=== PATIENT | female | born 1970 ===

== ENCOUNTER 2016-09-19 13:02 | Inpatient (IN) ==
--- NOTE | 2016-09-19 13:19 | Emergency Department Note ---
Disposition Clinical Impression: Pneumothorax Qualifiers: Pneumothorax type: spontaneous, primary Qualified Code(s): J93.11 - Primary spontaneous pneumothorax Disposition: Admitted As Inpatient Condition: Good Chest Pain HPI - General Chief Complaint: ED Chest Pain Stated Complaint: chest pain/marilia Time Seen by Provider: 09/19/16 13:05 Source: patient Limitations: no limitations Vital Signs Reviewed: Yes Nursing Notes Reviewed: Yes - History of Present Illness HPI Narrative: Radha Is a 45 old female that comes here presenting with chest pain and shortness of breath. She states the shortness of breath and chest pain started on Saturday gradually. She says that the pain is a 5 out of 10 radiating to the right arm. She has not taken anything for the pain at this time. Planning of tingling starting in her right hand going up into her right shoulder. She notes the pain is a aching pain in her chest. Rates no previous blood clots, long car rides, DVTs, PEs. She has no cardiac history. She has no family history of cardiac issues or pulmonary issues. The reason she came in today rather than before was at the pain went away for a day and then would come back. Today was just too bearable caused her to come in today. Severity scale (1-10): 8 - Related Data Home Medications Medication Instructions Recorded Confirmed HYDROcodone/Acet 5/325 mg [[place] 1 - 2 tab PO Q8H PRN 09/19/16 09/19/16 5-325 mg] Ibuprofen [Motrin] 400 mg PO Q6HR PRN 09/19/16 09/19/16 Allergies Allergy/AdvReac Type Severity Reaction Status Date / Time Penicillins Allergy Hives Verified 08/28/16 23:55 Constitutional: Denies: fever, chills, weakness, weight change Eyes: Denies: eye pain, eye discharge, vision change ENT ED: Denies: ear pain, throat pain, dental pain, hearing loss, epistaxis, congestion, dysphagia Cardiovascular: Reports: chest pain, dyspnea on exertion. Denies: palpitations , edema, syncope Respiratory: Reports: cough, dyspnea (Recently quit smoking since Saturday due to this chest pain.). Denies: wheezes, hemoptysis, stridor Gastrointestinal: Denies: abdominal pain, nausea, vomiting, diarrhea, constipation, hematemesis, melena, hematochezia Genitourinary: Denies: dysuria, frequency, hematuria, discharge Musculoskeletal: Denies: back pain, neck pain, arthralgia, myalgia Integumentary: Denies: rash, abrasion, lesions Neurological: Denies: headache, weakness, numbness, paresthesias, confusion, abnormal gait, vertigo Endocrine: Denies: fatigue Hematological/Lymphatic: Denies: easy bleeding, easy bruising Chest Pain PMH - Past Medical History Medical history: Reports: no medical history Psychiatric history: Reports: no psych history - Social History Smoking Status: Current every day smoker Alcohol use: Reports: occasionally, recent Drug use: Reports: none Physical Exam - General Limitations: no limitations General appearance: alert, in distress - Head Head exam: atraumatic, normocephalic, normal inspection - Eye Eye exam: Present: normal appearance, PERRL, EOMI - ENT ENT exam: normal exam, normal oropharynx, mucous membranes moist - Chest Chest inspection: Present: normal inspection, symmetric chest wall rise - Respiratory Respiratory exam: Present: normal lung sounds bilaterally, wheezes (Bilaterally) - Cardiovascular Cardiovascular exam: Present: regular rate, normal rhythm, normal heart sounds - Abdominal Exam Abdominal exam: Present: soft, Non-Tender. Absent: tenderness, distention, guarding, rebound, rigidity - Skin Skin exam: Present: warm, dry, intact, normal color Course Course Narrative: 45-year-old female present to the ed complaining of chest pain and dyspnea. due to her chest pain being worse with exertion and her shortness of breath we will do both a cardiac workup and dyspnea workup. Due to her being slightly hypertensive we will give her nitroglycerin and we will see if nitroglycerin takes care of it. We will order all chest pain labs do a chest x-ray and an EKG. She has a low risk of PEs based on well's score and she has not PERC negative. The d-dimer at this time. Okay with this plan. - Reevaluation(s) Reevaluation #1: Patient reevaluated after procedure states that she is still doing well postop until time breathing at this time. I notified her that she is to be admitted she is okay with this plan. Her pain is under control at this time. She is currently coughing which is expected after this procedure. Vital Signs Temperature 98.1 F 09/19/16 13:13 Pulse Rate 108 07/19/17 13:13 Respiratory Rate 20 09/19/16 13:13 Blood Pressure 151/126 09/19/16 13:13 O2 Sat by Pulse Oximetry 90 09/19/16 13:13 Temperature 98.2 F 09/19/16 19:41 Pulse Rate 103 09/19/16 19:41 Respiratory Rate 28 09/19/16 19:41 Blood Pressure 130/79 09/19/16 19:41 O2 Sat by Pulse Oximetry 98 09/19/16 19:41 Oxygen Delivery Oxygen Delivery Nasal Cannula Procedures - Chest Tube Chest Tube 1 Chest Tube Location: anterior axillary line (Right side) Size of Tube (cm): 8 ([place]) Chest Tube Prep: betadine prep, sterile drapes applied Local Anesthetic: lidocaine 1% Amount of Anesthesia Used (mL): 10 Incision Made With: #11 blade Post Procedure: sutured to skin Tube Drainage: Condensation Amount of Initial Drainage (cc's): 0 Post Procedure CXR?: Yes Patient Tolerated Procedure: Yes Complications: other Progress: Patient is doing well after chest tube was placed she stated that the pain is less now. She is having a harder time breathing. And this is expected as the lung is now expanding. Due to decreased blood flow to that right side because of the length of time from the pneumothorax her saturations are still low at approximately 89% which is expected based on decreased perfusion to the right lung. Chest Pain - MDM Narrative Medical decision making narrative: 45-year-old female presents the ED complaining of chest pain and dyspnea. Upon arrival she was seen and evaluated by myself. We decided to do a chest pain and dyspnea workup. Due to her well's score being low risk for PE and she was not pertinent negative without ordered d-dimer. When chest x-ray arrived they notified me of a pneumothorax being shown on chest x-ray to the right side. It was officially read as right sided pneumothorax with nearly complete right lung collapse. At this point we decided that she needed a chest tube. Decided to do a pneumodart 8 [place]. Patient signed informed consent for the procedure to be done. Patient agreed with this plan to have the chest tube placed. We premedicated her with Ativan and fentanyl for pain control. Patient was draped and cleaned. Sterile clothing was put on. She was anesthetized at the anterior axillary line at the fifth intercostal space. We anesthetized the periostium of the rib and then the parietal pleura. Patient tolerated this well. The chest tube was then placed with no complications. And connect to the Pneumovac and connected to suction. The tube was immediately filled with condensation affirming appropriate placement in the pleural space. There was no fluid drainage from this. Patient immediately said that she could breathe better. But she is still short of breath. Her sats dropped to 89% which was expected due to the length of time that the pneumothorax was in as her pain started last Saturday. The chest tube was then attached by suture to the scan with medications. And was taped to her body. Patient is doing well after the procedure. Cardiothoracic surgery Dr. Kaufman was contacted and he agreed to consult with the hospitalist upon admission. Hospitalist was called and agreed to accept the patient. Patient is now being admitted at this time. Chest X-Ray 09/19/16 14:55 IMPRESSION: 1. Status post placement of a right chest tube with near total resolution of the right pneumothorax. D/ / Richy Childers MD / Richy Childers MD Interpreting Provider: Richy Childers MD Chest X-Ray 09/19/16 14:55 IMPRESSION: 1. Status post placement of a right chest tube with near total resolution of the right pneumothorax. D/ / Richy Childers MD / Richy Childers MD Interpreting Provider: Richy Childers MD - Medical Records Medical records reviewed: Yes I reviewed the patient's medical records. - Lab Data Lab results reviewed: Yes I reviewed the patient's lab results. Result diagrams: 09/19/16 13:35 09/19/16 13:35 Lab Results 09/19/16 09/19/16 09/19/16 Range/Units 13:35 13:35 13:35 WBC 10.0 (4.3-11.1) K/mcL RBC 4.43 (3.82-4.97) M/mcL Hgb 13.2 (11.5-15.4) g/dL Hct 40.2 (35.3-44.9) % MCV 90.7 (83.0-100.0) fL MCH 29.8 (28.0-33.3) pg MCHC 32.8 (31.6-35.5) g/dL RDW 14.7 H (11.5-14.5) % Plt Count 258 (140-400) K/mcL MPV 10.4 (9.4-12.4) fL Immature Gran % 0.3 (0-4) % Seg Neutrophils % 72.2 % Lymphocytes % 19.3 % Monocytes % 7.3 % Eosinophils % 0.5 % Basophils % 0.4 % Neutrophils # 7.3 (1.6-8.9) K/mcL Lymphocytes # 1.9 (0.6-4.6) K/mcL Monocytes # 0.7 (0.0-1.3) K/mcL Eosinophils # 0.1 (0.0-0.6) K/mcL Basophils # 0.0 (0.0-0.2) K/mcL PT 12.0 (9.4-12.1) Seconds INR 1.1 APTT 27.5 (26.0-36.0) Seconds D-Dimer 984 H (0-500) ng/mLFEU Sodium 135 L (136-145) mEq/L Potassium 3.5 (3.5-4.5) mEq/L Chloride 101 (98-109) mEq/L Carbon Dioxide 24 (19-29) mEq/L BUN 6 L (7-20) mg/dL Creatinine 0.75 (0.57-1.11) mg/dL Est GFR ( Amer) > 60 (> 60) Est GFR (Non-Af Amer) > 60 (> 60) BUN/Creatinine Ratio 8 (6-26) Glucose 165 H (70-99) mg/dL Calculated Osmolality 281 (280-300) Calcium 9.2 (8.6-10.8) mg/dL Troponin I (0-0.03) ng/mL 09/19/16 Range/Units 13:35 WBC (4.3-11.1) K/mcL RBC (3.82-4.97) M/mcL Hgb (11.5-15.4) g/dL Hct (35.3-44.9) % MCV (83.0-100.0) fL MCH (28.0-33.3) pg MCHC (31.6-35.5) g/dL RDW (11.5-14.5) % Plt Count (140-400) K/mcL MPV (9.4-12.4) fL Immature Gran % (0-4) % Seg Neutrophils % % Lymphocytes % % Monocytes % % Eosinophils % % Basophils % % Neutrophils # (1.6-8.9) K/mcL Lymphocytes # (0.6-4.6) K/mcL Monocytes # (0.0-1.3) K/mcL Eosinophils # (0.0-0.6) K/mcL Basophils # (0.0-0.2) K/mcL PT (9.4-12.1) Seconds INR APTT (26.0-36.0) Seconds D-Dimer (0-500) ng/mLFEU Sodium (136-145) mEq/L Potassium (3.5-4.5) mEq/L Chloride (98-109) mEq/L Carbon Dioxide (19-29) mEq/L BUN (7-20) mg/dL Creatinine (0.57-1.11) mg/dL Est GFR ( Amer) (> 60) Est GFR (Non-Af Amer) (> 60) BUN/Creatinine Ratio (6-26) Glucose (70-99) mg/dL Calculated Osmolality (280-300) Calcium (8.6-10.8) mg/dL Troponin I 0.00 (0-0.03) ng/mL - Radiology Data Radiology results reviewed: Yes I reviewed the patient's radiology results. - EKG Data EKG attestation: Yes I reviewed and interpreted this EKG. EKG results narrative: EKG done 1320 shows sinus tachycardia. Rate 101, DE interval 135, QRS 76, QTC 414, right axis. No signs of ST changes. No acute T-wave changes. Overall the shows sinus tachycardia. There is no old EKG to compare to. EKG shows normal: sinus rhythm Rate: tachycardia Rhythm: NSR [place]/QRS: right axis deviation When compared to previous EKG there are: previous EKG unavailable Interpretation: no acute changes Heart Score - Score History: Moderately Suspicious EKG: Normal Age: 45-65 Risk Factors: 1-2 risk factors Troponin: Less than normal limit HEART Score Total: 3 Attestation Statement - Attestation Attestation: I examined this patient and my medical decision-making was reviewed with the Resident Physician. I agree with the documented findings, disposition and treatment plan as described except to the extent set forth below. 45-year-old female presents CT because of right-sided chest pain and dyspnea. Symptoms began 4 days ago and has been persistent. Pain is worsened by deep breathing. She had prior cough but cough is nonproductive. No fevers or chills. No left-sided precordial chest pain. No exertional provocation of pain but does complain of exertional dyspnea. No fevers or chills. No abdominal pain. No extremity weakness or asymmetric swelling of her legs. She is a heavy smoker but has not smoked for the past 4 days. No primary history of any lung disease. Patient appears uncomfortable but no significant physiologic distress. Mild tachypnea. Oropharynx clear mucous murmurs moist. Trachea is midline. No JVD. Chest with markedly diminished breath sounds in the right side. Cardiac exam regular no rubs gallops. Chest wall nontender. Abdomen soft nondistended nontender extremity is warm dry without asymmetric edema. No calf tenderness. Chest x-ray reveals near complete collapse of the right lung with pneumothorax. She was on supple no oxygen and administered analgesics and anxiolytics. She consented to placement of chest tube for evacuation of the pneumothorax. Right chest was prepped and draped in sterile fashion and a 8-[place] pneumothorax placed with good tolerance. The lung easily expanded and she did have sometransient coughing and dyspnea with transient hypoxia. Postprocedure x-ray revealed near-complete reexpansion of the lung. She is admitted for further evaluation. Chest tube was placed to continuous suction
[2016-09-19] MEDS ORDERED: Aspirin 81 MG TAB.CHEW PO ONE (13:20)
[2016-09-19] MEDS ORDERED: Nitroglycerin 0.4 MG TAB.SUBL SL PRN (13:20)
[2016-09-19] MEDS ORDERED: *HR* LORazepam 2 MG/ML VIAL IVP ONE (13:52)
[2016-09-19] MEDS ORDERED: *HR* FentaNYL (PF) 100 MCG/2 ML VIAL IVP ONE (13:52)
[2016-09-19] MEDS ORDERED: Lidocaine/EPI 1:100k 2% 20 ML VIAL INFILT ONE (13:52)
[2016-09-19 13:53] LABS: Basophils % 0.4 %; Eosinophils # 0.1 K/mcL (0.0-0.6); Eosinophils % 0.5 %; Hematocrit 40.2 % (35.3-44.9); Hemoglobin 13.2 g/dL (11.5-15.4); Immature Granulocytes % 0.3 % (0-4); Lymphocytes # 1.9 K/mcL (0.6-4.6); Lymphocytes % 19.3 %; Mean Corpuscular HGB Conc 32.8 g/dL (31.6-35.5); Mean Corpuscular Hemoglobin 29.8 pg (28.0-33.3); Mean Corpuscular Volume 90.7 fL (83.0-100.0); Mean Platelet Volume 10.4 fL (9.4-12.4); Monocytes # 0.7 K/mcL (0.0-1.3); Monocytes % 7.3 %; Neutrophils # 7.3 K/mcL (1.6-8.9); Platelet Count 258 K/mcL (140-400); Red Blood Count 4.43 M/mcL (3.82-4.97); Red Cell Distribution Width 14.7 % (11.5-14.5); Segmented Neutrophils % 72.2 %
[2016-09-19 13:59] LABS: INR 1.1
[2016-09-19 14:01] LABS: Activated Partial Thrombo Time 27.5 Seconds (26.0-36.0)
[2016-09-19 14:05] LABS: BUN/Creatinine Ratio 8 (6-26); Blood Urea Nitrogen 6 mg/dL (7-20); Calcium 9.2 mg/dL (8.6-10.8); Carbon Dioxide 24 mEq/L (19-29); Chloride 101 mEq/L (98-109); Glucose 165 mg/dL (70-99); Osmolality,Calculated 281 (280-300); Potassium 3.5 mEq/L (3.5-4.5); Sodium 135 mEq/L (136-145); eGFR For African Americans > 60 (> 60); eGFR For Non-African Americans > 60 (> 60)
[2016-09-19] MEDS ORDERED: 0.9 % Sodium Chloride 1,000 ML ONE (14:20)
[2016-09-19] MEDS ORDERED: 0.9 % Sodium Chloride 1,000 ML IVC ONE (15:06)
[2016-09-19] MEDS ORDERED: Ipratropium/Albuterol Neb 3 ML IH PRN (17:48)
[2016-09-19] MEDS ORDERED: Ipratropium/Albuterol Neb 3 ML IH ONE (17:48)
[2016-09-19] MEDS ORDERED: 0.9 % Sodium Chloride 1,000 ML IVC SCH (18:00)
[2016-09-19] MEDS ORDERED: Naloxone 0.4 MG/ML INJ IVP PRN (18:17)
[2016-09-19] MEDS ORDERED: *HR* Morphine 2 MG/ML SYRINGE IVP PRN (18:19)
[2016-09-19] MEDS ORDERED: Ondansetron 4 MG/2 ML VIAL IVP PRN (18:19)
[2016-09-19] MEDS ORDERED: Acetaminophen 325 MG TABLET PO PRN (18:19)
--- NOTE | 2016-09-19 20:13 | Internal Med History&Physical ---
<Michele Fuentes - Last Filed: 09/19/16 20:54> Date of Encounter: 09/19/16 Time of Encounter: 18:00 Assessment and Plan (1) Chest pain Current visit: Yes Status: Acute Patient presents with chief complaint of chest pain that worsens with breathing. Patient denies history of cardiac issues or problems previously. Patient to be placed on continuous cardiac telemetry with trended troponins x2. Nitroglycerin PRN ordered. Supplementa O2 and SpO2 monitoring ordered. EV echocardiogram ordered. May consider cardiology consult based on echocardiogram results. Will monitor patient closely for signs of increased cardiac and/or respiratory distress. Qualifiers: Chest pain type: chest pain on breathing Qualified Code(s): R07.1 - Chest pain on breathing (2) SOB (shortness of breath) Current visit: Yes Status: Acute Patient presents with acute SOB related to pneumothorax. Chest tube and vacuum placed in ED. Will continue with this therapy. Patient placed in supplemental O2 with face mask at 4L with SpO2 monitoring. DuoNebs Q4 ordered. Sputum culture ordered. Patient placed on safety/up with assist precautions. (3) Pneumothorax Current visit: Yes Status: Acute Patient presents in ED with pneumothorax of right lung. Chest tube placed with vaccum. Follow-up CXR showed resolution of pneumothorax. Will continue to monitor patient's output via vacuum. Will monitor patient's respiratory status. Patient placed on supplemental O2 with continuous SpO2 monitoring. Qualifiers: Pneumothorax type: spontaneous, primary Qualified Code(s): J93.11 - Primary spontaneous pneumothorax (4) Elevated d-dimer Current visit: Yes Status: Acute Patient presents with elevated D-dimer of 984 on admission to ED most likely related to pneumothorax. Will order follow-up labs to monitor. (5) DVT prophylaxis Current visit: Yes Status: Acute Patient placed on DVT prophylaxis to her current admission protocol and current status. Bilateral SCDs ordered for patient's LEs. Internal Medicine - H&P: HPI Chief complaint: SOB, Chest pain Admitted From: Emergency Dept Plans for Post Hospital Care: Home History of present illness: Ms. Zhong is a 45 year old female who presents from the ED with chief complaint of shortness of breath and chest pain. Patient states that her SOB and chest pain began on Saturday. She states the pain radiated to her right hand and right shoulder. She describes the pain as an ache. Patient states she came into the ED today because the pain became too great to handle. Patient denies any history of cardiac issues or pulmonary issues previously. Patient denies any medical or psychiatric history. Patient's d-dimer on admission to ED was 984. However, patient is low risk for PE or DVTs. During admission to the ED, patient's CXR showed pneumothorax so chest tube was placed on right side. Follow -up CXR showed resolution of pneumothorax. Patient presented with cough post- chest tube placement with heavy sputum production. Patient denies recent illness , fever, chills, abdominal pain, nausea, vomiting, diarrhea, unusual bleeding, weakness, headache, numbness, or tingling. Patient is at moderate risk for cardiac event and/or respiratory distress due to current chest pain and pneumothorax and will be placed as inpatient status with continuous cardiac telemetry, SPO2 monitoring, supplemental O2 face mask at 4 L, DuoNeb every 4, trending troponins 2, and bedrest with assist only. Patient to be monitored closely for increasing cardiac and/or respiratory distress. Time spent with patient > 40 minutes. Past Med Surg Social Fam HX - Past Medical History Source: patient Medical history: no medical history Psychiatric history: no psych history - Past Surgical History Surgical History: - Social History Smoking Status: Current every day smoker Packs per day: 1-03/05 PPD - reports she quit Saturday Smokeless Tobacco Status: No Alcohol use: occasionally Drug use: none Current living situation: Home Activity Level: Independent ambulation Recent Out of Country Travel Within the Last 8 Weeks: No Exposure or Possible Exposure to Illness During Travel: No - Family History Father Race: Family Member Ethnicity: Non- Living Status: Age at : 58 Cause of : Brain aneurysm Mother Race: Family Member Ethnicity: Non- Living Status: Still Living Hx Family Endocrine Disorder: Yes (DM) Hx Family Neuromuscular Disorders: Yes (Lupus) Brother Race: Family Member Ethnicity: Non- Living Status: Still Living Hx Family Medical Disorders: No Sister Race: Family Member Ethnicity: Non- Living Status: Still Living Hx Family Endocrine Disorder: Yes (DM) Internal Medicine - H&P: Meds HYDROcodone/Acet 5/325 mg [[place] 5-325 mg] 1 - 2 tab PO Q8H PRN 09/19/16 [ History] Ibuprofen [Motrin] 400 mg PO Q6HR PRN 09/19/16 [History] Allergies Penicillins Allergy (Verified 08/28/16 23:55) Hives All Systems PM: A 10-system review of systems was performed and is negative for pertinent findings except as documented above in the HPI. - Constitutional Constitutional: as per HPI, no chills, no fever(s), no night sweats - EENT Eyes: no change in vision, no discharge, no pain, no photophobia Ears: no ear discharge, no ear pain, no tinnitus Nose, mouth and throat: no dysphagia, no nasal discharge, no neck pain, no sore throat - Breasts Breasts: as per HPI - Cardiovascular Cardiovascular ROS IM: as per HPI, chest pain, dyspnea, dyspnea on exertion - Respiratory Respiratory: as per HPI, cough, dyspnea, dyspnea on exertion, wheezing - Gastrointestinal Gastrointestinal: no abdominal pain, no diarrhea, no hematemesis, no hematochezia, no melena, no nausea, no vomiting - Genitourinary Genitourinary: no change in urinary stream, no dysuria, no flank pain, no hematuria Menstruation: as per HPI - Musculoskeletal Musculoskeletal ROS IM: no numbness, no tingling - Integumentary Integumentary IM: no rash, no unusual bruising - Neurological Neurological ROS: no confusion, no convulsions, no focal weakness, no numbness, no tingling, no tremor(s) - Psychiatric Psychiatric: as per HPI - Endocrine Endocrine IM: as per HPI - Hematologic/Lymphatic Hematologic/Lymphatic: no easy bruising - Allergic/Immunologic Allergic/Immunologic: as per HPI - Constitutional Vitals: Temp Pulse Resp BP Pulse Ox 98.2 F 103 28 130/79 98 09/19/16 19:41 09/19/16 19:41 09/19/16 19:41 09/19/16 19:41 09/19/16 19:41 General appearance: Present: cooperative, A&O X 3, pleasant, severe distress, answers questions appropriately - Head Head exam: Present: atraumatic, normocephalic - Eye Eye exam: Present: PERRL, conjuntiva pink, sclera anicteric Pupils: Present: PERRL - ENT ENT exam: Present: normal exam, normal external ear exam - Neck Neck exam general surgery: Present: supple, trachea midline. Absent: lymphadenopathy - Respiratory Respiratory exam: Present: wheezes (Bilaterally in all lobes) - Cardiovascular Cardiovascular exam: Present: RRR, +S1, +S2. Absent: diastolic murmur, gallop, rubs, systolic murmur - GI/Abdominal GI/Abdominal exam: Present: normal bowel sounds, soft, no peritoneal signs. Absent: distended, tenderness - Rectal Rectal exam: Present: deferred - Additional comments: exam deferred. - Extremities Exam Extremities exam: Present: warm, radial pulses palpable and symetrical. Absent : calf tenderness, cyanotic, pedal edema - Back Exam Back exam: Present: normal inspection - Neurological Exam Neurological exam: Present: CN II-XII intact, oriented X3, no focal deficits. Absent: pronater drift, facial droop, speech deficit - Psychiatric Psychiatric exam: Present: normal affect, normal mood - Skin Skin exam: Present: dry, intact Internal Med - H&P Results - Labs CBC & Chem 7: 09/19/16 13:35 09/19/16 13:35 - EKG Data EKG shows normal: sinus rhythm Rate: tachycardia - EKG Data Prior EKG available for review: no EKG comments: 09/19/16 20:38 EKG dated 09/19/16 shows sinus tachycardia with borderline right axis deviation , minimal voltage criteria for LVH. Consider normal variant. Nonspecific ST and T-wave abnormality. - Impressions ITS Impressions Chest CTA 09/19/16 17:50 IMPRESSION: Near complete re-expansion of the right lung status post chest tube placement earlier today. Small nondependent right pneumothorax remains. There has been interval development of diffuse right lung airspace disease most compatible with re-expansion pulmonary edema. Minimal similar left lung airspace disease is also present ; contralateral lung can be involved as well. Pulmonary hemorrhage, although considered less likely, is also included in the differential ; aspiration is considered unlikely given its distribution. No CT evidence pulmonary embolism. D/ / Goldie Guzmán Cha, MD / Goldie Guzmán Cha, MD Interpreting Provider: Goldie Guzmán Cha, MD - Diagnostic Studies Chest x-ray Additional comments: Impressions Chest X-Ray 09/19/16 13:08 IMPRESSION: Large right-sided pneumothorax with minimal tension with shift to the left . Emergent findings called to Pranay Chiang RN in the ER on 09/19/2016 at 1:50 p.m.. D/ / Zhou Mccall MD / Zhou Mccall MD Interpreting Provider: Zhou Mccall MD Chest X-Ray 09/19/16 14:55 IMPRESSION: 1. Status post placement of a right chest tube with near total resolution of the right pneumothorax. D/ / Richy Childers MD / Richy Childers MD Interpreting Provider: Richy Childers MD CT scan - chest Additional comments: Impressions Chest CTA 09/19/16 17:50 IMPRESSION: Near complete re-expansion of the right lung status post chest tube placement earlier today. Small nondependent right pneumothorax remains. There has been interval development of diffuse right lung airspace disease most compatible with re-expansion pulmonary edema. Minimal similar left lung airspace disease is also present ; contralateral lung can be involved as well. Pulmonary hemorrhage, although considered less likely, is also included in the differential ; aspiration is considered unlikely given its distribution. No CT evidence pulmonary embolism. D/ / Goldie Guzmán Cha, MD / Goldie Guzmán Cha, MD Interpreting Provider: Goldie Guzmán Cha, MD <Sean Vega - Last Filed: 09/19/16 21:02> Date of Encounter: 09/19/16 Internal Medicine - H&P: HPI History of present illness: Ms. Zhong is a 45 year old female All Systems PM: A 10-system review of systems was performed and is negative for pertinent findings except as documented above in the HPI. - Constitutional Vitals: Temp Pulse Resp BP Pulse Ox 98.2 F 102 28 130/79 98 09/19/16 19:41 07/19/17 20:03 09/19/16 20:03 09/19/16 19:41 09/19/16 20:03 Internal Med - H&P Results - Labs CBC & Chem 7: 09/19/16 13:35 09/19/16 13:35 - Impressions ITS Impressions Chest CTA 09/19/16 17:50 IMPRESSION: Near complete re-expansion of the right lung status post chest tube placement earlier today. Small nondependent right pneumothorax remains. There has been interval development of diffuse right lung airspace disease most compatible with re-expansion pulmonary edema. Minimal similar left lung airspace disease is also present ; contralateral lung can be involved as well. Pulmonary hemorrhage, although considered less likely, is also included in the differential ; aspiration is considered unlikely given its distribution. No CT evidence pulmonary embolism. D/ / Goldie Guzmán Cha, MD / Goldie Guzmán Cha, MD Interpreting Provider: Goldie Guzmán Cha, MD - Attending Attestation I have seen and examined pt. I discussed with [facility] regarding the management plan. I agree with the documentation. Pt has developped postexpension pulmonary edema. Will give one dose of lasix iv. Cont supportive and symptomatic treatment.
[2016-09-19] MEDS: Pantoprazole 40 MG VIAL IVP SCH (20:43)
[2016-09-19 22:55] LABS: Bilirubin,Urine Negative (Negative); Blood,Urine Trace (Negative); Clarity,Urine Clear (Clear); Color,Urine Yellow (Yellow); Glucose,Urine (UA) Normal (Normal); Ketones,Urine Negative (Negative); Leukocyte Esterase,Urine Trace (Negative); Nitrite,Urine Negative (Negative); Protein,Urine Negative (Neg-Trace); Specific Gravity,Urine > 1.030 (1.010-1.025); Urobilinogen,Urine Normal (Normal)
[2016-09-19 22:58] LABS: Bacteria,Urine Moderate per hpf (None-Few); Hyaline Casts,Urine None Seen per lpf (None-Few); Squamous Epithelial Cell,Urine Many per lpf (None-Few)
[2016-09-20 04:33] LABS: Basophils # 0.1 K/mcL (0.0-0.2); Basophils % 0.5 %; Eosinophils # 0.1 K/mcL (0.0-0.6); Eosinophils % 0.7 %; Hematocrit 39.5 % (35.3-44.9); Immature Granulocytes % 0.4 % (0-4); Lymphocytes # 1.5 K/mcL (0.6-4.6); Lymphocytes % 11.4 %; Mean Corpuscular HGB Conc 32.9 g/dL (31.6-35.5); Mean Corpuscular Hemoglobin 30.1 pg (28.0-33.3); Mean Corpuscular Volume 91.4 fL (83.0-100.0); Mean Platelet Volume 10.8 fL (9.4-12.4); Monocytes # 0.7 K/mcL (0.0-1.3); Monocytes % 5.3 %; Neutrophils # 10.7 K/mcL (1.6-8.9); Platelet Count 219 K/mcL (140-400); Red Blood Count 4.32 M/mcL (3.82-4.97); Red Cell Distribution Width 14.7 % (11.5-14.5); Segmented Neutrophils % 81.7 %
[2016-09-20 04:44] LABS: BUN/Creatinine Ratio 8 (6-26); Calcium 7.9 mg/dL (8.6-10.8); Carbon Dioxide 30 mEq/L (19-29); Chloride 103 mEq/L (98-109); Chol/HDL Ratio 2.2 (0-4.9); Cholesterol 89 mg/dL (< 200); Glucose 91 mg/dL (70-99); HDL Cholesterol 41 mg/dL (40-59); LDL Cholesterol,Calculated 37 mg/dL (0-99); Magnesium 1.5 mg/dL (1.6-2.6); Osmolality,Calculated 279 (280-300); Potassium 3.5 mEq/L (3.5-4.5); Sodium 136 mEq/L (136-145); Triglycerides 56 mg/dL (< 150); eGFR For African Americans > 60 (> 60); eGFR For Non-African Americans > 60 (> 60)
[2016-09-20 04:45] LABS: Blood Urea Nitrogen 5 mg/dL (7-20)
[2016-09-20] MEDS: Pantoprazole 40 MG VIAL IVP SCH (08:12)
[2016-09-20] MEDS ORDERED: Magnesium Sulfate 1 GM in D5% in Water 100 ML IVPB ONE (08:12)
--- NOTE | 2016-09-20 09:06 | Electrocardiograph Report ---
[facility] Test Date: 2016-09-19 Pat Name: Radha Zhong Department: 104 Room: 2N09 Gender: F Domestic Technician: : 1970 Requested By: Kirill Lind Order Number: [id number] Reading MD: Frank Larkin MD Measurements Intervals Ramona Rate: 101 P: 100 MD: 135 QRS: 92 QRSD: 76 T: 65 QT: 356 QTc: 414 Interpretive Statements SINUS TACHYCARDIA BORDERLINE RIGHT AXIS DEVIATION MINIMAL VOLTAGE CRITERIA FOR LVH, CONSIDER NORMAL VARIANT NONSPECIFIC ST & T-WAVE ABNORMALITY ABNORMAL RHYTHM ECG Electronically Signed On 09-20-2016 9:04:44 EDT by Frank Larkin MD
--- NOTE | 2016-09-20 10:55 | Cardiothoracic Consult Note ---
Date of Encounter: 09/20/16 Time of Encounter: 10:52 Assessment and Plan (1) Pneumothorax Current Visit: Yes Status: Acute The patient is recovering from her right spontaneous pneumothorax with a chest tube in place. The chest tube has an air leak on suction. The chest tube should remain on suction until the air leak resolves. The assessment and plan as outlined above was discussed with the patient and/or family members who expressed understanding and agreement. All questions were answered. Qualifiers: Pneumothorax type: spontaneous, primary Qualified Code(s): J93.11 - Primary spontaneous pneumothorax - History of Present Illness Consult date: 09/19/16 Requesting physician: Carissa Martinez Consult reason: Chest tube management. Chief complaint: Right spontaneous pneumothorax. History of present illness: Ms. Zhong is a 45 year old lady with a long history of tobacco abuse who experienced sudden onset of right sided chest pain and shortness of breath on Saturday, September 15, 2016. The patient states that she had a similar episode approximately 1 month ago; however, the symptoms lasted for only 1-2 days. She did not seek medical attention at that time. The right-sided chest pain that she experienced on Saturday lasted for 3-4 days. During this time the pain intensified and she sought medical attention when she could no longer tolerate the discomfort. A chest x-ray performed at [facility] emergency department revealed a right pneumothorax. A chest tube was placed in the emergency department with near complete resolution of the pneumothorax. The patient was admitted for further care and I have been asked to follow the patient for chest tube management. Past Med Surg Social Fam HX - Past Medical History Medical history: COPD Psychiatric history: no psych history - Past Surgical History Surgical History: - Social History Smoking Status: Current every day smoker Packs per day: 1-03/05 PPD X 37 years (reports she quit Saturday) Smokeless Tobacco Status: No Alcohol use: occasionally Drug use: none Occupational status: unemployed Current living situation: Home - Independent Activity Level: Independent ambulation Recent Out of Country Travel Within the Last 8 Weeks: No Exposure or Possible Exposure to Illness During Travel: No - Family History Father Race: Family Member Ethnicity: Non- Living Status: Age at : 58 Cause of : Brain aneurysm Hx Family Medical Disorders: Yes (brain aneurysm) Mother Race: Family Member Ethnicity: Non- Living Status: Still Living Hx Family Endocrine Disorder: Yes (DM) Hx Family Neuromuscular Disorders: Yes (Lupus) Brother Race: Family Member Ethnicity: Non- Living Status: Still Living Hx Family Medical Disorders: No Sister Race: Family Member Ethnicity: Non- Living Status: Still Living Hx Family Endocrine Disorder: Yes (DM) Medications and Allergies HYDROcodone/Acet 5/325 mg [[place] 5-325 mg] 1 - 2 tab PO Q8H PRN 09/19/16 [ History] Ibuprofen [Motrin] 400 mg PO Q6HR PRN 09/19/16 [History] Allergies Penicillins Allergy (Verified 08/28/16 23:55) Hives All Systems Review: A 10-system review of systems was performed and is negative for pertinent findings except as documented above in the HPI. Physical Examination Vital Signs, Last 4 Hours Temp Pulse Resp BP Pulse Ox 09/20/16 10:38 97.5 F L 83 20 128/74 100 09/20/16 08:05 98.1 F 99 20 126/71 98 09/20/16 07:25 108 General: Conversant, No Apparent Distress Neck: No JVD, Normal carotid pulses Cardiac: Reg Rate and Rhythm, Normal S1 and S2, No Murmur Lungs: Normal Breath Sounds, Other (Right chest tube with air leak on suction.) Neuro: Alert and responsive, No focal deficits noted Vascular: Normal capillary refill Abdomen: Soft, Non-tender Musculoskeletal: No Chest Wall Tenderness Extremities: No Clubbing, No Cyanosis, No Edema Results 09/20/16 03:47 09/20/16 03:47 Lab Results, Last 24 hours 09/19/16 09/20/16 09/20/16 21:52 03:47 03:47 WBC 13.1 H Hgb 13.0 Hct 39.5 Plt Count 219 Sodium Potassium Chloride Carbon Dioxide BUN Creatinine Glucose Calcium Magnesium Troponin I 0.00 0.02 09/20/16 03:47 WBC Hgb Hct Plt Count Sodium 136 Potassium 3.5 Chloride 103 Carbon Dioxide 30 H BUN 5 L Creatinine 0.63 Glucose 91 Calcium 7.9 L Magnesium 1.5 L Troponin I Consult Discharge Plan - Plan Referrals: Vinh Andino DO [Resident] - 10/09/16 2:00 pm
[2016-09-20] MEDS ORDERED: Nicotine 21 MG PATCH.TD24 TD PRN (14:39)
--- NOTE | 2016-09-20 19:09 | Internal Med Progress Note ---
Date of Encounter: 09/20/16 Time of Encounter: 10:45 - Assessment and plan (1) Pneumothorax Current Visit: Yes Status: Acute Assessment and plan: Right-sided spontaneous pneumothorax. Patient presented with progressive shortness of breath since last Saturday. In ED, stat chest x-ray showed right- sided pneumothorax. She underwent placement of right chest tube. Subsequent CTA of chest revealed near complete reexpansion of the right lung status post chest tube placement. Small nondependent aright pneumothorax. There has been interval development of diffuse right lung airspace disease most compatible with reexpansion pulmonary edema. No PE. Echocardiac showed LVEF 65%. Appreciate cardiothoracic service input. Continue chest tube until her leak resolves. Qualifiers: Pneumothorax type: spontaneous, primary Qualified Code(s): J93.11 - Primary spontaneous pneumothorax (2) COPD (chronic obstructive pulmonary disease) Current Visit: Yes Status: Chronic Assessment and plan: nebs. counseled to quit smoking. states she quit last Saturday. Qualifiers: COPD type: emphysema Emphysema type: centrilobular Qualified Code(s): J43.2 - Centrilobular emphysema (3) Emphysema of lung Current Visit: Yes Status: Chronic Assessment and plan: nebs Qualifiers: Emphysema type: centrilobular Qualified Code(s): J43.2 - Centrilobular emphysema (4) Hypomagnesemia Current Visit: Yes Status: Acute Assessment and plan: replete (5) Tobacco abuse Current Visit: Yes Status: Chronic - Subjective Interval history: pt reports mild pain at site of chest tube. - Constitutional Vitals: Temp Pulse Resp BP Pulse Ox 98.7 F 81 20 130/74 97 09/20/16 15:20 09/20/16 15:20 09/20/16 15:20 09/20/16 15:20 09/20/16 15:20 General appearance: Present: cooperative, A&O X 3, pleasant, severe distress, answers questions appropriately - Neck Neck exam general surgery: Present: supple, trachea midline. Absent: lymphadenopathy - Respiratory Respiratory exam: Present: decreased breath sounds, rhonchi Additional comments: right sided chest tube - Cardiovascular Cardiovascular exam: Present: RRR - GI/Abdominal GI/Abdominal exam: Present: normal bowel sounds, soft. Absent: distended, tenderness - Extremities Exam Extremities exam: Absent: pedal edema - Back Exam Back exam: Absent: CVA tenderness (L), CVA tenderness (R) - Neurological Exam Neurological exam: Present: alert, oriented X3, no focal deficits, strengths equal and symetr throughout. Absent: facial droop, speech deficit - Skin Skin exam: Absent: rash Internal Medicine: Result - Labs CBC & Chem 7: 09/20/16 03:47 09/20/16 03:47 Labs: Short CBC 09/20/16 Range/Units 03:47 WBC 13.1 H (4.3-11.1) K/mcL Hgb 13.0 (11.5-15.4) g/dL Hct 39.5 (35.3-44.9) % Plt Count 219 (140-400) K/mcL Neutrophils # 10.7 H (1.6-8.9) K/mcL BMP 09/20/16 03:47 Sodium 136 Potassium 3.5 Chloride 103 Carbon Dioxide 30 H BUN 5 L Creatinine 0.63 Glucose 91 Calcium 7.9 L Cardiac Enzymes 09/19/16 09/20/16 Range/Units 21:52 03:47 Troponin I 0.00 0.02 (0-0.03) ng/mL Urine 09/19/16 Range/Units 21:55 Urine Color Yellow (Yellow) Urine Clarity Clear (Clear) Urine pH 6.0 (5.0-8.0) pH Units Ur Specific [place] > 1.030 H (1.010-1.025) Urine Protein Negative (Neg-Trace) mg/dL Urine Glucose (UA) Normal (Normal) mg/dL - ABG Interpretation ABG results: PT/INR, D-dimer PT 12.0 Seconds (9.4-12.1) 09/19/16 13:35 D-Dimer 984 ng/mLFEU (0-500) H 09/19/16 13:35 - Impressions Impressions Chest CTA 09/19/16 17:50 IMPRESSION: Near complete re-expansion of the right lung status post chest tube placement earlier today. Small nondependent right pneumothorax remains. There has been interval development of diffuse right lung airspace disease most compatible with re-expansion pulmonary edema. Minimal similar left lung airspace disease is also present ; contralateral lung can be involved as well. Pulmonary hemorrhage, although considered less likely, is also included in the differential ; aspiration is considered unlikely given its distribution. No CT evidence pulmonary embolism. D/ / Goldie Guzmán Cha, MD / Goldie Guzmán Cha, MD Interpreting Provider: Goldie Guzmán Cha, MD Consult Discharge Plan - Plan Referrals: Vinh Andino DO [Resident] - 10/09/16 2:00 pm (PLEASE FILL OUT THE NEW PATIENT PACKET THAT IS BEING MAILED TO YOU, AND TAKE TO YOUR APPPOINTMENT. SHOW UP 15 MINUTES EARLY FOR YOUR APPOINTMENT. TAKE PICTURE ID, INS. CARDS AND ALL MEDICATIONS IN THE BOTTLES. IF YOU HAVE TO CANCEL PLEASE CALL [phone] WITHIN 24 HOURS OF YOUR APPOINTMENT. THANKS)
[2016-09-20] MEDS: *HR* HYDROcodone/Acet 5/325 mg TABLET PO PRN (19:18)
[2016-09-21 04:30] LABS: Basophils # 0.1 K/mcL (0.0-0.2); Basophils % 0.6 %; Eosinophils # 0.2 K/mcL (0.0-0.6); Eosinophils % 2.8 %; Hematocrit 36.7 % (35.3-44.9); Hemoglobin 11.8 g/dL (11.5-15.4); Immature Granulocytes % 0.3 % (0-4); Lymphocytes # 1.4 K/mcL (0.6-4.6); Lymphocytes % 16.2 %; Mean Corpuscular HGB Conc 32.2 g/dL (31.6-35.5); Mean Corpuscular Hemoglobin 29.8 pg (28.0-33.3); Mean Corpuscular Volume 92.7 fL (83.0-100.0); Mean Platelet Volume 10.7 fL (9.4-12.4); Monocytes # 0.6 K/mcL (0.0-1.3); Monocytes % 6.4 %; Neutrophils # 6.4 K/mcL (1.6-8.9); Platelet Count 220 K/mcL (140-400); Red Blood Count 3.96 M/mcL (3.82-4.97); Red Cell Distribution Width 14.8 % (11.5-14.5); Segmented Neutrophils % 73.7 %
[2016-09-21 04:44] LABS: BUN/Creatinine Ratio 7 (6-26); Calcium 8.3 mg/dL (8.6-10.8); Carbon Dioxide 29 mEq/L (19-29); Chloride 104 mEq/L (98-109); Glucose 98 mg/dL (70-99); Magnesium 1.6 mg/dL (1.6-2.6); Osmolality,Calculated 283 (280-300); Potassium 3.6 mEq/L (3.5-4.5); Sodium 138 mEq/L (136-145); eGFR For African Americans > 60 (> 60); eGFR For Non-African Americans > 60 (> 60)
[2016-09-21 04:49] LABS: Blood Urea Nitrogen 4 mg/dL (7-20)
--- NOTE | 2016-09-21 07:28 | Cardiothoracic Progress Note ---
Date of Encounter: 09/21/16 Time of Encounter: 07:26 - Assessment and plan (1) Pneumothorax Current Visit: Yes Status: Acute The patient is recovering from her right spontaneous pneumothorax with a chest tube in place. The chest tube has an air leak on suction. This morning's chest x -ray shows an increased size in the right pneumothorax. The patient will have a second chest tube placed in interventional radiology today to hopefully resolve the pneumothorax. The chest tube should remain on suction. The assessment and plan as outlined above was discussed with the patient and/or family members who expressed understanding and agreement. All questions were answered. Qualifiers: Pneumothorax type: spontaneous, primary Qualified Code(s): J93.11 - Primary spontaneous pneumothorax - Subjective Interval history: The patient is resting comfortably in her hospital bed. She has no complaints. Vital Signs, Last 4 Hours Temp Pulse Resp BP Pulse Ox 09/21/16 03:36 98.0 F 72 18 133/77 99 Oxgyen Flow Rate Oxygen Flow Rate (LPM) 6 Clinical Data, last 8 Hours Output, Chest Tube Drainage 30 Amount [Right Mid-Axillary Chest #1] Output, Chest Tube Drainage 40 Amount [Right Mid-Axillary Chest #1] Output, Urine Amount 400 Weight 09/19/16 09/20/16 09/21/16 23:59 23:59 23:59 Weight 51.7 kg 51.5 kg - Physical Examination General: Conversant, No Apparent Distress Neck: No JVD, Normal carotid pulses Cardiac: Reg Rate and Rhythm, Normal S1 and S2, No Murmur Incision: No signs of infection, Dry/intact dressing Chest tubes: Minimal drainage, Air leak Lungs: Other (Wheezes or rhonchi bilaterally.) Neuro: Alert and responsive, No focal deficits noted Vascular: Normal capillary refill Musculoskeletal: No Chest Wall Tenderness Extremities: No Clubbing, No Cyanosis, No Edema - Labs 09/21/16 03:58 09/21/16 03:58 Lab Results, Last 24 hours 09/21/16 09/21/16 03:58 03:58 WBC 8.7 Hgb 11.8 Hct 36.7 Plt Count 220 Sodium 138 Potassium 3.6 Chloride 104 Carbon Dioxide 29 BUN 4 L Creatinine 0.57 Glucose 98 Calcium 8.3 L Magnesium 1.6 - Imaging Chest Xray: image reviewed (Increased right lung airspace opacities. Increased size of right pneumothorax.) Consult Discharge Plan - Plan Referrals: Vinh Andino DO [Resident] - 10/09/16 2:00 pm (PLEASE FILL OUT THE NEW PATIENT PACKET THAT IS BEING MAILED TO YOU, AND TAKE TO YOUR APPPOINTMENT. SHOW UP 15 MINUTES EARLY FOR YOUR APPOINTMENT. TAKE PICTURE ID, INS. CARDS AND ALL MEDICATIONS IN THE BOTTLES. IF YOU HAVE TO CANCEL PLEASE CALL [phone] WITHIN 24 HOURS OF YOUR APPOINTMENT. THANKS)
[2016-09-21] MEDS: Pantoprazole 40 MG VIAL IVP SCH (07:31)
[2016-09-21] MEDS: *HR* HYDROcodone/Acet 5/325 mg TABLET PO PRN ×2 (07:34→14:33)
--- NOTE | 2016-09-21 11:30 | IR Procedure Note ---
Date of procedure: 09/21/16 Consent Obtained: Written consent Timeout: Correct patient and procedure verified, Correct site verified, Time out performed, Skin prep completed Indications: pneumothorax rt Procedure Performed: rt chest tube Site/Technique: 10F, right Results/Findings: adequate placement Estimated blood loss (cc): 0 Complications: None; Tolerated procedure well Post Procedure Treatment Plan: CXR, pleuravac
[2016-09-21] MEDS: levoFLOXacin 500 MG TABLET PO SCH (14:33)
--- NOTE | 2016-09-21 18:51 | Internal Med Progress Note ---
Date of Encounter: 09/21/16 Time of Encounter: 10:30 - Assessment and plan (1) Pneumothorax Current Visit: Yes Status: Acute Assessment and plan: Right-sided spontaneous pneumothorax. Patient presented with progressive shortness of breath since last Saturday. In ED, stat chest x-ray showed right- sided pneumothorax. She underwent placement of right chest tube. Subsequent CTA of chest revealed near complete reexpansion of the right lung status post chest tube placement. Small nondependent aright pneumothorax. There has been interval development of diffuse right lung airspace disease most compatible with reexpansion pulmonary edema. No PE. Echocardiogram showed LVEF 65%. Appreciate cardiothoracic service input. Patient underwent placement pigtail catheter by IR due to air leak in first chest tube with associated worsening of pneumothorax. CXR post-chest tube placement shows improvement of pneumothorax and persistent diffuse right pulmonary infiltrate. Qualifiers: Pneumothorax type: spontaneous, primary Qualified Code(s): J93.11 - Primary spontaneous pneumothorax (2) COPD (chronic obstructive pulmonary disease) Current Visit: Yes Status: Chronic Assessment and plan: nebs. counseled to quit smoking. states she quit last Saturday. Qualifiers: COPD type: emphysema Emphysema type: centrilobular Qualified Code(s): J43.2 - Centrilobular emphysema (3) Emphysema of lung Current Visit: Yes Status: Chronic Assessment and plan: nCXR shows scattered emphysematous bullae at the lung apices Qualifiers: Emphysema type: centrilobular Qualified Code(s): J43.2 - Centrilobular emphysema (4) Hypomagnesemia Current Visit: Yes Status: Acute Assessment and plan: replete (5) Tobacco abuse Current Visit: Yes Status: Chronic - Subjective Interval history: pt reports moderate chest soreness after second chest tube placement. no shortness of breath. - Constitutional Vitals: Temp Pulse Resp BP Pulse Ox 98.4 F 94 18 122/89 91 09/21/16 16:18 09/21/16 16:18 09/21/16 16:18 09/21/16 16:18 09/21/16 16:18 General appearance: Present: cooperative, mild distress (from pain), A&O X 3, pleasant, severe distress, answers questions appropriately - Neck Neck exam general surgery: Present: supple, trachea midline. Absent: lymphadenopathy - Respiratory Additional comments: two right-sided chest tubes. diminished breath sounds bilaterally. - Cardiovascular Cardiovascular exam: Present: RRR - GI/Abdominal GI/Abdominal exam: Present: normal bowel sounds, soft. Absent: distended, tenderness - Extremities Exam Extremities exam: Absent: pedal edema - Neurological Exam Neurological exam: Present: alert, oriented X3, no focal deficits, strengths equal and symetr throughout. Absent: facial droop, speech deficit Internal Medicine: Result - Labs CBC & Chem 7: 09/21/16 03:58 09/21/16 03:58 Labs: Short CBC 09/21/16 Range/Units 03:58 WBC 8.7 (4.3-11.1) K/mcL Hgb 11.8 (11.5-15.4) g/dL Hct 36.7 (35.3-44.9) % Plt Count 220 (140-400) K/mcL Neutrophils # 6.4 (1.6-8.9) K/mcL BMP 09/21/16 03:58 Sodium 138 Potassium 3.6 Chloride 104 Carbon Dioxide 29 BUN 4 L Creatinine 0.57 Glucose 98 Calcium 8.3 L - ABG Interpretation ABG results: PT/INR, D-dimer PT 12.0 Seconds (9.4-12.1) 09/19/16 13:35 D-Dimer 984 ng/mLFEU (0-500) H 09/19/16 13:35 - Impressions Impressions Chest Tube Insertion 09/21/16 00:00 IMPRESSION: Successful placement of a right anterior chest tube to evacuate pneumothorax. D/ /21/2016 12:00:13 Leslie Rouse MD / [email or web address] Interpreting Provider: Leslie Rouse MD Chest X-Ray 09/21/16 06:00 IMPRESSION: Enlarging right apical pneumothorax despite small-bore right-sided chest tube. Large-bore right-sided chest tube may be warranted. Worsening bilateral airspace disease right worse than left. D/ /21/2016 07:52:32 Jean-Pierre Boswell MD / [email or web address] Interpreting Provider: Jean-Pierre Boswell MD Chest X-Ray 09/21/16 11:27 IMPRESSION: Evacuation of right-sided pneumothorax following 2nd chest tube placement. D/ / Zhou Mccall MD / Zhou Mccall MD Interpreting Provider: Zhou Mccall MD Consult Discharge Plan - Plan Referrals: Vinh Andino DO [Resident] - 10/09/16 2:00 pm (PLEASE FILL OUT THE NEW PATIENT PACKET THAT IS BEING MAILED TO YOU, AND TAKE TO YOUR APPPOINTMENT. SHOW UP 15 MINUTES EARLY FOR YOUR APPOINTMENT. TAKE PICTURE ID, INS. CARDS AND ALL MEDICATIONS IN THE BOTTLES. IF YOU HAVE TO CANCEL PLEASE CALL [phone] WITHIN 24 HOURS OF YOUR APPOINTMENT. THANKS)
[2016-09-22 00:56] LABS: Bilirubin,Urine Negative (Negative); Blood,Urine Negative (Negative); Clarity,Urine Clear (Clear); Color,Urine Yellow (Yellow); Glucose,Urine (UA) Normal (Normal); Ketones,Urine Negative (Negative); Leukocyte Esterase,Urine Small (Negative); Nitrite,Urine Negative (Negative); PH,Urine 7.5 pH Units (5.0-8.0); Protein,Urine Negative (Neg-Trace); Specific Gravity,Urine 1.014 (1.010-1.025); Urobilinogen,Urine Normal (Normal)
[2016-09-22 00:59] LABS: Bacteria,Urine Few per hpf (None-Few); Hyaline Casts,Urine None Seen per lpf (None-Few); Squamous Epithelial Cell,Urine Many per lpf (None-Few)
[2016-09-22 02:34] LABS: Basophils % 0.5 %; Eosinophils # 0.2 K/mcL (0.0-0.6); Hematocrit 39.6 % (35.3-44.9); Hemoglobin 12.7 g/dL (11.5-15.4); Immature Granulocytes % 0.4 % (0-4); Lymphocytes # 1.7 K/mcL (0.6-4.6); Lymphocytes % 20.5 %; Mean Corpuscular HGB Conc 32.1 g/dL (31.6-35.5); Mean Corpuscular Hemoglobin 29.2 pg (28.0-33.3); Mean Platelet Volume 10.4 fL (9.4-12.4); Monocytes # 0.6 K/mcL (0.0-1.3); Monocytes % 7.7 %; Neutrophils # 5.7 K/mcL (1.6-8.9); Platelet Count 293 K/mcL (140-400); Red Blood Count 4.35 M/mcL (3.82-4.97); Red Cell Distribution Width 14.7 % (11.5-14.5); Segmented Neutrophils % 68.9 %
[2016-09-22 02:52] LABS: BUN/Creatinine Ratio 11 (6-26); Blood Urea Nitrogen 7 mg/dL (7-20); Calcium 8.9 mg/dL (8.6-10.8); Carbon Dioxide 29 mEq/L (19-29); Chloride 104 mEq/L (98-109); Glucose 115 mg/dL (70-99); Magnesium 1.5 mg/dL (1.6-2.6); Osmolality,Calculated 285 (280-300); Potassium 3.8 mEq/L (3.5-4.5); Sodium 138 mEq/L (136-145); eGFR For African Americans > 60 (> 60); eGFR For Non-African Americans > 60 (> 60)
--- NOTE | 2016-09-22 07:31 | Cardiothoracic Progress Note ---
Date of Encounter: 09/22/16 Time of Encounter: 07:29 - Assessment and plan (1) Pneumothorax Current Visit: Yes Status: Acute The patient is recovering from her right spontaneous pneumothorax with a chest tube in place. The second chest tube helped resolve the residual right apical pneumothorax. There is no air leak today. A chest tube should remain on suction. A chest x-ray will be repeated in the morning. The assessment and plan as outlined above was discussed with the patient and/or family members who expressed understanding and agreement. All questions were answered. Qualifiers: Pneumothorax type: spontaneous, primary Qualified Code(s): J93.11 - Primary spontaneous pneumothorax - Subjective Interval history: The patient is resting comfortably in her hospital bed. She has no complaints. Vital Signs, Last 4 Hours Temp Pulse Resp BP Pulse Ox 09/22/16 05:22 98.9 F 89 16 135/80 98 Oxgyen Flow Rate Oxygen Flow Rate (LPM) 4 Clinical Data, last 8 Hours Output, Chest Tube Drainage 0 Amount [Right Mid-Axillary Chest #1] Output, Urine Amount 0 Weight 09/20/16 09/21/16 09/22/16 23:59 23:59 23:59 Weight 51.7 kg 51.5 kg 51.8 kg - Physical Examination General: Conversant, No Apparent Distress Neck: No JVD, Normal carotid pulses Cardiac: Reg Rate and Rhythm, Normal S1 and S2, No Murmur Incision: No signs of infection, Dry/intact dressing Sternum: Stable Chest tubes: Minimal drainage, Other (No air leak.) Lungs: Normal Breath Sounds, No Wheeze, Rales, Rhonchi Neuro: Alert and responsive, No focal deficits noted Vascular: Normal capillary refill Extremities: No Clubbing, No Cyanosis, No Edema, Normal Pulses - Labs 09/22/16 01:49 09/22/16 01:49 Lab Results, Last 24 hours 09/22/16 09/22/16 01:49 01:49 WBC 8.2 Hgb 12.7 Hct 39.6 Plt Count 293 Sodium 138 Potassium 3.8 Chloride 104 Carbon Dioxide 29 BUN 7 Creatinine 0.65 Glucose 115 H Calcium 8.9 Magnesium 1.5 L - Imaging Chest Xray: image reviewed (Small right apical pneumothorax, significantly decreased from yesterday.) Consult Discharge Plan - Plan Referrals: Vihn Andino DO [Resident] - 10/09/16 2:00 pm (PLEASE FILL OUT THE NEW PATIENT PACKET THAT IS BEING MAILED TO YOU, AND TAKE TO YOUR APPPOINTMENT. SHOW UP 15 MINUTES EARLY FOR YOUR APPOINTMENT. TAKE PICTURE ID, INS. CARDS AND ALL MEDICATIONS IN THE BOTTLES. IF YOU HAVE TO CANCEL PLEASE CALL [phone] WITHIN 24 HOURS OF YOUR APPOINTMENT. THANKS)
[2016-09-22] MEDS: levoFLOXacin 500 MG TABLET PO SCH (07:44)
[2016-09-22] MEDS ORDERED: Magnesium Sulfate 1 GM in D5% in Water 100 ML IVPB ONE (07:51)
[2016-09-22] MEDS: Azithromycin 250 MG TABLET PO SCH (10:12)
--- NOTE | 2016-09-22 13:59 | Internal Med Progress Note ---
Date of Encounter: 09/22/16 Time of Encounter: 09:30 - Assessment and plan (1) Pneumothorax Current Visit: Yes Status: Acute Assessment and plan: Right-sided spontaneous pneumothorax. Patient presented with progressive shortness of breath since last Saturday. In ED, stat chest x-ray showed right- sided pneumothorax. She underwent placement of right chest tube. Subsequent CTA of chest revealed near complete reexpansion of the right lung status post chest tube placement. Small nondependent aright pneumothorax. There has been interval development of diffuse right lung airspace disease most compatible with reexpansion pulmonary edema. No PE. Echocardiogram showed LVEF 65%. 09/21: PT had air leak in first chest tube with associated worsening of pneumothorax. She underwent placement of pigtail catheter by IR. CXR post-chest tube placement shows resolution of pneumothorax and persistent diffuse right pulmonary infiltrate. 09/22: Appreciate cardiothoracic service management of chest tubes. Qualifiers: Pneumothorax type: spontaneous, primary Qualified Code(s): J93.11 - Primary spontaneous pneumothorax (2) COPD (chronic obstructive pulmonary disease) Current Visit: Yes Status: Chronic Assessment and plan: nebs. increased sputum production. start mucinex and oral azithromycin. Qualifiers: COPD type: emphysema Emphysema type: centrilobular Qualified Code(s): J43.2 - Centrilobular emphysema (3) Emphysema of lung Current Visit: Yes Status: Chronic Assessment and plan: nCXR shows scattered emphysematous bullae at the lung apices Qualifiers: Emphysema type: centrilobular Qualified Code(s): J43.2 - Centrilobular emphysema (4) Hypomagnesemia Current Visit: Yes Status: Acute Assessment and plan: replete (5) Tobacco abuse Current Visit: Yes Status: Chronic - Subjective Interval history: pt reports improved chest soreness and some respiratory secretions. - Constitutional Vitals: Temp Pulse Resp BP Pulse Ox 98.0 F 90 18 127/91 95 09/22/16 11:58 09/22/16 11:58 09/22/16 11:58 09/22/16 11:58 09/22/16 11:58 General appearance: Present: cooperative, A&O X 3, pleasant, no acute distress, answers questions appropriately - Neck Neck exam general surgery: Present: supple, trachea midline. Absent: lymphadenopathy - Respiratory Respiratory exam: Present: decreased breath sounds, rhonchi. Absent: wheezes - Cardiovascular Cardiovascular exam: Present: RRR - GI/Abdominal GI/Abdominal exam: Present: normal bowel sounds, soft. Absent: distended, tenderness - Extremities Exam Extremities exam: Absent: pedal edema - Neurological Exam Neurological exam: Present: alert, oriented X3. Absent: facial droop, speech deficit - Skin Skin exam: Absent: rash Internal Medicine: Result - Labs CBC & Chem 7: 09/22/16 01:49 09/22/16 01:49 Labs: Short CBC 09/22/16 Range/Units 01:49 WBC 8.2 (4.3-11.1) K/mcL Hgb 12.7 (11.5-15.4) g/dL Hct 39.6 (35.3-44.9) % Plt Count 293 (140-400) K/mcL Neutrophils # 5.7 (1.6-8.9) K/mcL BMP 09/22/16 01:49 Sodium 138 Potassium 3.8 Chloride 104 Carbon Dioxide 29 BUN 7 Creatinine 0.65 Glucose 115 H Calcium 8.9 Urine 09/22/16 Range/Units 00:47 Urine Color Yellow (Yellow) Urine Clarity Clear (Clear) Urine pH 7.5 (5.0-8.0) pH Units Ur Specific Grant 1.014 (1.010-1.025) Urine Protein Negative (Neg-Trace) mg/dL Urine Glucose (UA) Normal (Normal) mg/dL - ABG Interpretation ABG results: PT/INR, D-dimer PT 12.0 Seconds (9.4-12.1) 09/19/16 13:35 D-Dimer 984 ng/mLFEU (0-500) H 09/19/16 13:35 - Impressions Impressions Chest X-Ray 09/22/16 06:00 IMPRESSION: 1. Stable position of two right-sided chest tubes. 2. No pneumothorax identified. 3. Persistent multifocal airspace consolidation, most pronounced in the right lung. D/ : / 09/22/2016 08:51:33 Hao Jacobo MD / fabi Interpreting Provider: Hao Jacobo MD Consult Discharge Plan - Plan Referrals: Vinh Andino DO [Resident] - 10/09/16 2:00 pm (PLEASE FILL OUT THE NEW PATIENT PACKET THAT IS BEING MAILED TO YOU, AND TAKE TO YOUR APPPOINTMENT. SHOW UP 15 MINUTES EARLY FOR YOUR APPOINTMENT. TAKE PICTURE ID, INS. CARDS AND ALL MEDICATIONS IN THE BOTTLES. IF YOU HAVE TO CANCEL PLEASE CALL [phone] WITHIN 24 HOURS OF YOUR APPOINTMENT. THANKS)
[2016-09-23 01:10] LABS: Basophils # 0.1 K/mcL (0.0-0.2); Basophils % 0.9 %; Eosinophils # 0.2 K/mcL (0.0-0.6); Eosinophils % 2.6 %; Hematocrit 37.2 % (35.3-44.9); Hemoglobin 11.9 g/dL (11.5-15.4); Immature Granulocytes % 0.3 % (0-4); Lymphocytes # 1.7 K/mcL (0.6-4.6); Lymphocytes % 28.8 %; Mean Corpuscular Volume 90.5 fL (83.0-100.0); Mean Platelet Volume 10.1 fL (9.4-12.4); Monocytes # 0.6 K/mcL (0.0-1.3); Monocytes % 10.8 %; Neutrophils # 3.3 K/mcL (1.6-8.9); Platelet Count 286 K/mcL (140-400); Red Blood Count 4.11 M/mcL (3.82-4.97); Red Cell Distribution Width 14.7 % (11.5-14.5); Segmented Neutrophils % 56.6 %
[2016-09-23 01:23] LABS: BUN/Creatinine Ratio 16 (6-26); Blood Urea Nitrogen 11 mg/dL (7-20); Calcium 8.9 mg/dL (8.6-10.8); Carbon Dioxide 30 mEq/L (19-29); Chloride 104 mEq/L (98-109); Glucose 107 mg/dL (70-99); Magnesium 1.7 mg/dL (1.6-2.6); Osmolality,Calculated 288 (280-300); Potassium 3.7 mEq/L (3.5-4.5); Sodium 139 mEq/L (136-145); eGFR For African Americans > 60 (> 60); eGFR For Non-African Americans > 60 (> 60)
[2016-09-23] MEDS: Azithromycin 250 MG TABLET PO SCH (07:30)
--- NOTE | 2016-09-23 09:01 | Cardiothoracic Progress Note ---
Date of Encounter: 09/23/16 Time of Encounter: 09:00 - Assessment and plan (1) Pneumothorax Current Visit: Yes Status: Acute The patient is recovering from her right spontaneous pneumothorax with a chest tube in place. The second chest tube helped resolve the residual right apical pneumothorax. There is no air leak today. A chest tubes will be placed on waterseal. A chest x-ray will be repeated in the morning. The assessment and plan as outlined above was discussed with the patient and/or family members who expressed understanding and agreement. All questions were answered. Qualifiers: Pneumothorax type: spontaneous, primary Qualified Code(s): J93.11 - Primary spontaneous pneumothorax - Subjective Interval history: The patient is resting comfortably in her hospital bed. She has no complaints. Vital Signs, Last 4 Hours Temp Pulse Resp BP Pulse Ox 09/23/16 07:25 98.1 F 63 16 136/83 93 Oxgyen Flow Rate Oxygen Flow Rate (LPM) 2 Clinical Data, last 8 Hours Output, Chest Tube Drainage 0 Amount [Right Lateral Chest #2 ] Output, Chest Tube Drainage 0 Amount [Right Lateral Chest #2 ] Output, Chest Tube Drainage 2 Amount [Right Lateral Chest #2 ] Output, Chest Tube Drainage 0 Amount [Right Mid-Axillary Chest #1] Output, Urine Amount 0 Output, Urine Amount 400 Weight 09/21/16 09/22/16 09/23/16 23:59 23:59 23:59 Weight 51.5 kg 51.8 kg 52.6 kg - Physical Examination General: Conversant, No Apparent Distress Neck: No JVD, Normal carotid pulses Cardiac: Reg Rate and Rhythm, Normal S1 and S2, No Murmur Incision: No signs of infection, Dry/intact dressing Sternum: Stable Chest tubes: Minimal drainage, Other (No air leak.) Lungs: Normal Breath Sounds, No Wheeze, Rales, Rhonchi Neuro: Alert and responsive, No focal deficits noted Vascular: Normal capillary refill Extremities: No Clubbing, No Cyanosis, No Edema - Labs 09/23/16 00:57 09/23/16 00:57 Lab Results, Last 24 hours 09/23/16 09/23/16 00:57 00:57 WBC 5.8 Hgb 11.9 Hct 37.2 Plt Count 286 Sodium 139 Potassium 3.7 Chloride 104 Carbon Dioxide 30 H BUN 11 Creatinine 0.67 Glucose 107 H Calcium 8.9 Magnesium 1.7 - Imaging Chest Xray: image reviewed (No pneumothorax.) Consult Discharge Plan - Plan Referrals: Vinh Andino DO [Resident] - 10/09/16 2:00 pm (PLEASE FILL OUT THE NEW PATIENT PACKET THAT IS BEING MAILED TO YOU, AND TAKE TO YOUR APPPOINTMENT. SHOW UP 15 MINUTES EARLY FOR YOUR APPOINTMENT. TAKE PICTURE ID, INS. CARDS AND ALL MEDICATIONS IN THE BOTTLES. IF YOU HAVE TO CANCEL PLEASE CALL [phone] WITHIN 24 HOURS OF YOUR APPOINTMENT. THANKS)
--- NOTE | 2016-09-23 16:55 | Internal Med Progress Note ---
Date of Encounter: 09/23/16 Time of Encounter: 09:30 - Assessment and plan (1) Pneumothorax Current Visit: Yes Status: Acute Assessment and plan: Right-sided spontaneous pneumothorax. Patient presented with progressive shortness of breath since last Saturday. In ED, stat chest x-ray showed right- sided pneumothorax. She underwent placement of right chest tube. Subsequent CTA of chest revealed near complete reexpansion of the right lung status post chest tube placement. Small nondependent aright pneumothorax. There has been interval development of diffuse right lung airspace disease most compatible with reexpansion pulmonary edema. No PE. Echocardiogram showed LVEF 65%. 09/21: PT had air leak in first chest tube with associated worsening of pneumothorax. She underwent placement of pigtail catheter by IR. CXR post-chest tube placement shows resolution of pneumothorax and persistent diffuse right pulmonary infiltrate. 09/23: Appreciate cardiothoracic service management of chest tubes. CXR this morning shows resolution of pneumothorax. Chest tubes to water seal. Qualifiers: Pneumothorax type: spontaneous, primary Qualified Code(s): J93.11 - Primary spontaneous pneumothorax (2) COPD (chronic obstructive pulmonary disease) Current Visit: Yes Status: Chronic Assessment and plan: Cough and sputum production is improved. continue mucinex and oral azithromycin. Qualifiers: COPD type: emphysema Emphysema type: centrilobular Qualified Code(s): J43.2 - Centrilobular emphysema (3) Emphysema of lung Current Visit: Yes Status: Chronic Assessment and plan: nCXR shows scattered emphysematous bullae at the lung apices Qualifiers: Emphysema type: centrilobular Qualified Code(s): J43.2 - Centrilobular emphysema (4) Hypomagnesemia Current Visit: Yes Status: Acute Assessment and plan: replete (5) Tobacco abuse Current Visit: Yes Status: Chronic - Subjective Interval history: Patient states her cough is better. - Constitutional Vitals: Temp Pulse Resp BP Pulse Ox 98.1 F 71 16 124/71 95 09/23/16 15:13 09/23/16 15:24 09/23/16 15:13 09/23/16 15:13 09/23/16 15:13 General appearance: Present: cooperative, A&O X 3, pleasant, no acute distress, answers questions appropriately - Neck Neck exam general surgery: Present: supple, trachea midline. Absent: lymphadenopathy - Respiratory Respiratory exam: Present: CTAB - Cardiovascular Cardiovascular exam: Present: RRR - GI/Abdominal GI/Abdominal exam: Present: normal bowel sounds, soft. Absent: distended - Extremities Exam Extremities exam: Absent: pedal edema - Neurological Exam Neurological exam: Present: alert, oriented X3, no focal deficits, strengths equal and symetr throughout. Absent: facial droop, speech deficit - Skin Skin exam: Absent: rash Internal Medicine: Result - Labs CBC & Chem 7: 09/23/16 00:57 09/23/16 00:57 Labs: Short CBC 09/23/16 Range/Units 00:57 WBC 5.8 (4.3-11.1) K/mcL Hgb 11.9 (11.5-15.4) g/dL Hct 37.2 (35.3-44.9) % Plt Count 286 (140-400) K/mcL Neutrophils # 3.3 (1.6-8.9) K/mcL BMP 09/23/16 00:57 Sodium 139 Potassium 3.7 Chloride 104 Carbon Dioxide 30 H BUN 11 Creatinine 0.67 Glucose 107 H Calcium 8.9 - ABG Interpretation ABG results: PT/INR, D-dimer PT 12.0 Seconds (9.4-12.1) 09/19/16 13:35 D-Dimer 984 ng/mLFEU (0-500) H 09/19/16 13:35 - Impressions Impressions Chest X-Ray 09/23/16 06:00 IMPRESSION: Improving aeration in the right lung. No pneumothorax is seen. D/ / 09/23/2016 07:04:59 Jean-Pierre Boswell MD / [facility] Interpreting Provider: Jean-Pierre Boswell MD Consult Discharge Plan - Plan Referrals: Vinh Andino DO [Resident] - 10/09/16 2:00 pm (PLEASE FILL OUT THE NEW PATIENT PACKET THAT IS BEING MAILED TO YOU, AND TAKE TO YOUR APPPOINTMENT. SHOW UP 15 MINUTES EARLY FOR YOUR APPOINTMENT. TAKE PICTURE ID, INS. CARDS AND ALL MEDICATIONS IN THE BOTTLES. IF YOU HAVE TO CANCEL PLEASE CALL [phone] WITHIN 24 HOURS OF YOUR APPOINTMENT. THANKS)
--- NOTE | 2016-09-24 06:59 | Cardiothoracic Progress Note ---
Date of Encounter: 09/24/16 Time of Encounter: 06:58 - Assessment and plan (1) Pneumothorax Current Visit: Yes Status: Acute The patient is recovering from her right spontaneous pneumothorax with a chest tube in place. The chest tubes were removed. The patient may be discharged home later today. She should follow-up in my office in 4-6 weeks. The assessment and plan as outlined above was discussed with the patient and/or family members who expressed understanding and agreement. All questions were answered. Qualifiers: Pneumothorax type: spontaneous, primary Qualified Code(s): J93.11 - Primary spontaneous pneumothorax - Subjective Interval history: The patient is resting comfortably in her hospital bed. She has no complaints. Vital Signs, Last 4 Hours Temp Pulse Resp BP Pulse Ox 09/24/16 04:31 98.0 F 79 17 124/80 96 Oxgyen Flow Rate Oxygen Flow Rate (LPM) 2 Clinical Data, last 8 Hours Output, Chest Tube Drainage 0 Amount [Right Lateral Chest #2 ] Output, Chest Tube Drainage 0 Amount [Right Lateral Chest #2 ] Output, Chest Tube Drainage 0 Amount [Right Mid-Axillary Chest #1] Output, Chest Tube Drainage 0 Amount [Right Mid-Axillary Chest #1] Output, Urine Amount 300 Weight 09/22/16 09/23/16 09/24/16 23:59 23:59 23:59 Weight 51.8 kg 52.6 kg 53.6 kg - Physical Examination General: Conversant, No Apparent Distress Neck: No JVD, Normal carotid pulses Cardiac: Reg Rate and Rhythm, Normal S1 and S2, No Murmur Incision: No signs of infection, Dry/intact dressing Chest tubes: Minimal drainage, Other (No air leak.) Lungs: Normal Breath Sounds, No Wheeze, Rales, Rhonchi Neuro: Alert and responsive, No focal deficits noted Vascular: Normal capillary refill Musculoskeletal: No Chest Wall Tenderness Extremities: No Clubbing, No Cyanosis, No Edema - Labs 09/23/16 00:57 09/23/16 00:57 - Imaging Chest Xray: image reviewed (None pneumothorax.) Consult Discharge Plan - Plan Referrals: Vinh Andino DO [Resident] - 10/09/16 2:00 pm (PLEASE FILL OUT THE NEW PATIENT PACKET THAT IS BEING MAILED TO YOU, AND TAKE TO YOUR APPPOINTMENT. SHOW UP 15 MINUTES EARLY FOR YOUR APPOINTMENT. TAKE PICTURE ID, INS. CARDS AND ALL MEDICATIONS IN THE BOTTLES. IF YOU HAVE TO CANCEL PLEASE CALL [phone] WITHIN 24 HOURS OF YOUR APPOINTMENT. THANKS)
[2016-09-24 07:45] VITALS: BP 125/71
[2016-09-24] MEDS: Azithromycin 250 MG TABLET PO SCH (07:57)
--- NOTE | 2016-09-24 09:20 | Discharge Summary ---
Date of Encounter: 09/24/16 Time of Encounter: 09:20 - Discharge Diagnosis (1) Pneumothorax Priority: Primary Status: Acute Qualifiers: Pneumothorax type: spontaneous, primary Qualified Code(s): J93.11 - Primary spontaneous pneumothorax (2) COPD (chronic obstructive pulmonary disease) Priority: Secondary Status: Chronic Qualifiers: COPD type: emphysema Emphysema type: centrilobular Qualified Code(s): J43.2 - Centrilobular emphysema (3) Emphysema of lung Priority: Secondary Status: Chronic Qualifiers: Emphysema type: centrilobular Qualified Code(s): J43.2 - Centrilobular emphysema (4) Hypomagnesemia Priority: Primary Status: Acute (5) Tobacco abuse Priority: Secondary Status: Chronic - Discharge Medications Prescriptions: Albuterol Sulfate [Albuterol Inhaler] 0 puff IH Q4HR PRN #1 hfa.aer.ad PRN Reason: Shortness Of Breath/Wheezing Azithromycin [Zithromax] 250 mg PO DAILY #4 tab GuaiFENesin ER [Mucinex] 1,200 mg PO BID #12 Nicotine Patch [Nicoderm] 21 mg TD DAILY PRN #30 PRN Reason: NICOTINE CRAVING Tiotropium [Spiriva] 18 mcg IH 0700 #30 capsule Home Medications: HYDROcodone/Acet 5/325 mg [[place] 5-325 mg] 1 - 2 tab PO Q8H PRN 09/19/16 [ History] Ibuprofen [Motrin] 400 mg PO Q6HR PRN 09/19/16 [History] Albuterol Sulfate [Albuterol Inhaler] 0 puff IH Q4HR PRN #1 hfa.aer.ad 09/24/16 [Rx] Azithromycin [Zithromax] 250 mg PO DAILY #4 tab 09/24/16 [Rx] GuaiFENesin ER [Mucinex] 1,200 mg PO BID #12 09/24/16 [Rx] Nicotine Patch [Nicoderm] 21 mg TD DAILY PRN #30 09/24/16 [Rx] Tiotropium [Spiriva] 18 mcg IH 0700 #30 capsule 09/24/16 [Rx] Allergies/Adverse Reactions: Allergies Penicillins Allergy (Verified 08/28/16 23:55) Hives Date of admission: 09/19/16 16:25 Primary care physician: Nalini Marlow, Consults: 09/19/16 18:50 Consult to Nutrition [CONS] Routine Comment: recent weight loss Consulting Provider: NUTRITION Reason for Dietary Consult: Other Consult to Hot Braider [CONS] Routine Reason for SW Consult: recently from spouse. unempoyed. possible needs at d/c 09/21/16 07:29 Consult to Interventional Radiology [CONS] Routine Consulting Provider: Radiology Interventional Cols Reason for Consult: Right chest tube placement Call Completed: No - Patient Status Disposition: Home, Self-Care Condition: Good Functional capacity at discharge: independent ambulation Overall status at discharge: patient is progressing back to baseline - Discharge Instructions Instructions: Albuterol (By breathing), Guaifenesin (By mouth), Azithromycin ( By mouth), Nicotine (Absorbed through the skin), Tiotropium (By breathing), Spontaneous Pneumothorax (DC), Cigarette Smoking and Your Health, [facility] Associate (GEN) Follow Up With: Regino Abrams DO [Resident] - 10/02/16 10:00 am (Please fill out your new patient packet that is being sent to you in the mail, and take to you appointment. Please take a picture ID, Ins. Cards, all medications in the bottle to your appointment. Take your discharge summary with you. Show up 15 minutes early for your appointment. If you have to cancel please call [phone] within 24 hours of your appointment.) Dany Kaufman MD [Partnered Physician] - 10/18/16 2:30 pm Additional Instructions: - NO LIFTING MORE THAN 10 POUNDS OR 1 GALLON OF MILK FOR AT LEAST 1 WEEK OR IF YOUR PCP SAYS OTHERWISE AT YOUR FOLLOW UP APPOINTMENT. OTHERWISE, RESUME ACTIVITY TOLERATED. - NO STRAINING. - IF YOU SMOKE, STOP. (SCRIPT FOR NICOTINE PATCH). - APPLY A DRY DRESSING DAILY OR NEEDED IF PREVIOUS CHEST TUBE SITES ARE DRAINING. THEY MAY DRAIN FOR A COUPLE WEAKS AND THAT IS NORMAL. A PINK, SEROUS, OR LIGHT RED DRAINAGE IS NORMAL. IF YOU EXPERIENCE ANY S/S OF INFECTION PLEASE CALL YOUR DOCTOR. FEVER >101, INCREASED REDNESS, YELLOW OR PURULENT DRAINAGE. OR IF YOU WOULD HAVE ACTIVE BLEEDING FROM THE SITE. - MAY SHOWER SATURDAY. WASH SOAP AND WATER. PAT DRY. NO VIGOROUS SCRUBBING OR RUBBING. - REGULAR DIET. - Diet and Activity Activity: resume usual activities as tolerated Diet: regular diet Interval History: Patient has no complaints. She is eager to go home. Hospital course: Ms. Zhong is a 45 year old female with past medical history of COPD and tobacco use who presented with a chief complaint of progressive shortness of breath. In ED, stat chest x-ray showed right-sided pneumothorax. She underwent placement of right chest tube. Subsequent CTA of chest revealed no PE, near complete re- expansion of the right lung status post chest tube placement, Small nondependent right pneumothorax. and interval development of diffuse right lung airspace disease most compatible with re-expansion pulmonary edema. Patient had air leak in first chest tube with associated worsening of pneumothorax and underwent placement of second chest tube-pigtail catheter by IR with resolution of pneumothorax. Follow-up chest x-ray confirmed resolution of pneumothorax. : Patient instructed to quit smoking and to follow-up with primary care physician for COPD/emphysema. - Time Spent with Patient Total time spent providing and/or coordinating discharge services: - Constitutional Vitals: Temp Pulse Resp BP Pulse Ox 97.7 F 68 18 125/71 96 09/24/16 07:42 09/24/16 07:55 09/24/16 07:42 09/24/16 07:42 09/24/16 07:42 General appearance: Present: cooperative, A&O X 3, pleasant, no acute distress, answers questions appropriately - Neck Neck exam general surgery: Present: supple, trachea midline. Absent: lymphadenopathy - Respiratory Respiratory exam: Present: CTAB - Cardiovascular Cardiovascular exam: Present: RRR - GI/Abdominal GI/Abdominal exam: Present: normal bowel sounds, soft. Absent: distended, tenderness - Extremities Exam Extremities exam: Absent: pedal edema - Neurological Exam Neurological exam: Present: alert, oriented X3, no focal deficits, strengths equal and symetr throughout. Absent: facial droop, speech deficit - Skin Skin exam: Absent: rash
== END 2016-09-24 12:45 | disposition home or self-care (01) | DRG 143 ==
LOC: EMEROO 13:02 → 2NNU 16:25
PROVIDERS: ADMIT Nurse Practitioner Family; ATTEND Internal Medicine
PROC: IRDRAIN (2016-09-21 12:00)